=== PATIENT | female | born 1990 | race Caucasian/White ===

== ENCOUNTER → 2024-03-19 15:26 | Outpatient (CLI) | payer OTHER, SELFPAY ==
[2024-03-19 20:39] LABS: Urine N gonorrhoeae NOT DETECTED
[2024-03-19 20:44] LABS: Urine Chlamydia NOT DETECTED
== END ==
PROVIDERS: Visit Provider Student in an Organized Health Care Education/Training Program
DX: Z11.3 Encounter for screening for infections with a predominantly sexual mode of transmission (principal)
CPT/HCPCS: 87491; 87591

== ENCOUNTER → 2024-04-02 11:30 | Outpatient (CLI) | payer OTHER, SELFPAY ==
[2024-04-02 12:19] LABS: Add Manual Diff / Slide Review NO; Basophils Absolute Auto 0 /uL (0-100); Basophils Percent Auto 0.2 % (0-2); Eosinophils Absolute Auto 100 /uL (0-450); Eosinophils Percent Auto 0.6 % (2-4); Hematocrit 40.6 % (36-46); Hemoglobin 13.6 g/dL (12.0-16.0); Lymphocytes Absolute Auto 2300 /uL (1100-4500); Lymphocytes Percent Auto 26.2 % (25-40); Mean Corpuscular HGB Conc 33.4 % (30-36); Mean Corpuscular Hemoglobin 29.5 PG (26-34); Mean Corpuscular Volume 88.3 fL (80-100); Monocytes Absolute Auto 500 /uL (0-900); Monocytes Percent Auto 5.3 % (3-14); Neutrophils Absolute Auto 6000 /uL (1500-7000); Neutrophils Percent Auto 67.7 % (50-75); Platelet Count 226 X10^3/uL (150-400); Red Cell Distribution Width 13.4 % (11.6-14.8); White Blood Cell Count 8.8 X10^3/uL (4.5-11.0)
[2024-04-02 12:39] LABS: Natera Collection Specimen Collected
[2024-04-04 05:11] LABS: RPR Screen Non Reactive (Non Reactive)
[2024-04-04 08:16] LABS: Varicella IgG Antibody Reactive (Non Reactive)
[2024-04-04 16:46] LABS: Hepatitis B Surface Antigen NEGATIVE s/c (NEGATIVE)
[2024-04-04 17:03] LABS: HIV 1 & 2 Ab/Ag 4th Gen Combo NEGATIVE (NEGATIVE); Hep C Virus Ab w/Reflex Quant NEGATIVE s/c (NEGATIVE)
== END ==
PROVIDERS: Referring Provider Student in an Organized Health Care Education/Training Program; Visit Provider Student in an Organized Health Care Education/Training Program
DX: Z34.81 Encounter for supervision of other normal pregnancy, first trimester (principal)
CPT/HCPCS: 36415; 80055; 86787; 86803; 86850; 86900; 86901; 87389

== ENCOUNTER → 2024-06-11 11:07 | Outpatient (CLI) | payer OTHER, SELFPAY | PROVIDERS: Referring Provider Student in an Organized Health Care Education/Training Program; Visit Provider Student in an Organized Health Care Education/Training Program | DX: Z34.80 Encounter for supervision of other normal pregnancy, unspecified trimester (principal) | CPT/HCPCS: 36415; 86735; 86762; 86765 ==

== ENCOUNTER → 2024-06-12 11:59 | Outpatient (CLI) | payer OTHER, SELFPAY ==
--- NOTE | 2024-06-12 12:01 | DI.US.S_ITS ---
PROCEDURE: US OB >= 14 WEEKS FETUS INDICATIONS: 20 week anatomy scan OUTSIDE/PRIOR DATING DATA: Last menstrual period (LMP): 01/14/2024. LMP-based estimated date of delivery (MABLE): 10/20/2024. First dating scan (date and location): 03/19/2024. Estimated date of delivery (MABLE) from first dating scan: 10/23/2024. The calculations are made using the clinical MABLE of 10/20/2024. TECHNIQUE: Real-time scanning was performed of the fetus, with image documentation and biometric measurements. COMPARISON: None. FINDINGS: General: A single living intrauterine gestation is present. Presentation: Vertex. Placenta: Placental position is anterior , without previa. Amniotic fluid index: 14.8 cm, normal range is 5-24 cm. Single deepest vertical pocket is 5.9 cm. heart rate: 165 beats per minute. Maternal cervical canal: 3.3 cm long. Normal lower limit is 2.5 cm. biometrics: Biparietal diameter: 5.1 cm 21 weeks 4 days Head circumference: 19.8 cm 22 weeks 0 days Abdominal circumference: 16.8 cm 21 weeks 6 days Femur length: 3.9 cm 22 weeks 2 days Clinically estimated gestational age: 21 weeks 3 days Composite gestational age from present scan: 22 weeks 0 days Estimated weight and percentile: 470 g 96th percentile Anatomic survey: Neuro: Ventricles are non-dilated at less than 10 mm. Cisterna magna is normal at 3-11 mm. Cerebellum is normal in size and morphology. Nuchal skin fold: Normal at less than 6 mm between 14-21 weeks gestational age. Face: Nose and lips, facial profile are normal. Spine: No evidence for spina bifida. Heart: 4-chambered heart is present, with normal ventricular outflow tracts. Diaphragm: Diaphragm is intact. Stomach: Left-sided stomach is present. Kidneys: No hydronephrosis. Normal is less than 5 mm in 2nd trimester, less than 7 mm in 3rd trimester. Cord: 3-vessel cord has orthotopic insertion. Bladder: Normal in size. Extremities: All 4 extremities identified. IMPRESSION: Single live intrauterine with gestational age today of 22 weeks 0 days. Anatomy is within normal limits. We strive to produce accurate, complete, and clear reports of imaging services. To assist us in improving patient care, this report was composed using standard report templates and voice recognition software. Therefore, it may contain abnormal punctuation, insertions and/or omissions. Occasional wrong-word or sound-alike substitutions may occur. Though we review the report and make efforts to correct it, we do recommend that the report be read carefully in proper context to recognize any text inaccuracies. Dictated by: Carmen Garcia M.D. on 06/12/2024 at 22:05 Approved by: Carmen Garcia M.D. on 06/12/2024 at 22:07
== END ==
PROVIDERS: Referring Provider Student in an Organized Health Care Education/Training Program; Visit Provider Student in an Organized Health Care Education/Training Program
DX: Z36.0 Encounter for antenatal screening for chromosomal anomalies (principal); Z3A.22 22 weeks gestation of pregnancy
CPT/HCPCS: 76811

== ENCOUNTER → 2024-07-09 13:49 | Outpatient (CLI) | payer OTHER, SELFPAY ==
[2024-07-09 15:53] LABS: Hematocrit 39.1 % (36-46); Hemoglobin 13.1 g/dL (12.0-16.0)
[2024-07-09 16:43] LABS: GTT (PREG) 1 Hour PP 50gm Dose 122 mg/dL (76-139)
== END ==
PROVIDERS: Referring Provider Student in an Organized Health Care Education/Training Program; Visit Provider Student in an Organized Health Care Education/Training Program
DX: Z13.0 Encounter for screening for diseases of the blood and blood-forming organs and certain disorders involving the immune mechanism (principal); Z13.1 Encounter for screening for diabetes mellitus
CPT/HCPCS: 82950; 85014; 85018

== ENCOUNTER 2024-09-16 14:56 | Outpatient (CLI) | payer OTHER, SELFPAY ==
[2024-09-16 15:55] LABS: Alanine Aminotransferase 17 IU/L (<35); Albumin 3.3 g/dL (3.5-5.0); Albumin Globulin Ratio 1.1 (1.0-2.8); Alkaline Phosphatase 92 U/L (38-126); Aspartate Aminotransferase 29 IU/L (14-36); BUN Creatinine Ratio 6.5 (6-22); Bilirubin Total 0.5 mg/dL (0.2-1.3); Blood Urea Nitrogen 3 mg/dL (7-17); Calcium 9.2 mg/dL (8.4-10.2); Carbon Dioxide 20 mmol/L (22-32); Chloride 106 mmol/L (98-107); Estimated Glomerular Filt Rate > 60 mL/min (>60); Globulin 2.9 g/dL (1.7-4.1); Glucose 106 mg/dL (70-99); HEMOLYSIS < 15 (0-50); Potassium 3.5 mmol/L (3.4-5.1); Sodium 133 mmol/L (137-145); Total Protein 6.2 g/dL (6.3-8.2); Uric Acid 3.2 mg/dL (2.5-6.2)
[2024-09-16 16:02] LABS: Add Manual Diff / Slide Review NO; Basophils Absolute Auto 0 /uL (0-100); Basophils Percent Auto 0.3 % (0-2); Eosinophils Absolute Auto 100 /uL (0-450); Eosinophils Percent Auto 1.4 % (2-4); Hematocrit 38.9 % (36-46); Hemoglobin 13.1 g/dL (12.0-16.0); Lymphocytes Absolute Auto 2000 /uL (1100-4500); Lymphocytes Percent Auto 24.2 % (25-40); Mean Corpuscular HGB Conc 33.7 % (30-36); Mean Corpuscular Hemoglobin 31.7 PG (26-34); Mean Corpuscular Volume 94.2 fL (80-100); Monocytes Absolute Auto 600 /uL (0-900); Monocytes Percent Auto 7.5 % (3-14); Neutrophils Absolute Auto 5600 /uL (1500-7000); Neutrophils Percent Auto 66.6 % (50-75); Platelet Count 192 X10^3/uL (150-400); Red Blood Cell Count 4.13 X10^6/uL (4.0-5.2); Red Cell Distribution Width 14.3 % (11.6-14.8); White Blood Cell Count 8.4 X10^3/uL (4.5-11.0)
[2024-09-16 16:09] LABS: Creatinine Urine Random 122.03 mg/dL; Protein (Total) Urine Random 12 mg/dL (0-12); Protein Creatinine Ratio Urine 0.09 GRAM/24H
== END 2024-09-16 16:20 | disposition home or self-care (01) ==
LOC: OB 09-17 06:37
PROVIDERS: Referring Provider Student in an Organized Health Care Education/Training Program; Visit Provider Student in an Organized Health Care Education/Training Program
DX: Z34.83 Encounter for supervision of other normal pregnancy, third trimester (principal); Z3A.35 35 weeks gestation of pregnancy
CPT/HCPCS: 36415; 59025; 80053; 84550; 85025; G0378; G0379

== ENCOUNTER → 2024-09-27 14:24 | Outpatient (CLI) | payer OTHER, SELFPAY ==
[2024-09-28 12:03] LABS: Strep Grp B PCR POS for Grp B Strep
== END ==
LOC: LAB 14:25
PROVIDERS: Visit Provider Obstetrics & Gynecology
DX: Z34.93 Encounter for supervision of normal pregnancy, unspecified, third trimester (principal); Z3A.36 36 weeks gestation of pregnancy
CPT/HCPCS: 87653

== ENCOUNTER → 2024-10-08 15:23 | Outpatient (CLI) | payer OTHER, SELFPAY ==
--- NOTE | 2024-10-08 15:26 | DI.US.S_ITS ---
PROCEDURE: US OB LIMITED INDICATIONS: LGA OUTSIDE/PRIOR DATING DATA: Last menstrual period (LMP): 01/14/2024. LMP-based estimated date of delivery (MABLE): 10/20/2024. First dating scan (date and location): 03/19/2024. Estimated date of delivery (MABLE) from first dating scan: 10/23/2024. The calculations are made using the clinical MABLE of 10/20/2024. TECHNIQUE: Real-time scanning was performed of the fetus, with image documentation and biometric measurements. Endovaginal scanning: Not performed COMPARISON: [facility], OB >= 14 WEEKS FETUS, 06/12/2024, 12:19. FINDINGS: General: A single living intrauterine gestation is present. Presentation: Vertex. Placenta: Placental position is anterior, without previa. Amniotic fluid index: 12 cm, normal range is 5-24 cm. Single deepest vertical pocket is 6 cm. heart rate: 141 beats per minute. Maternal cervical canal: Not well seen. biometrics: Biparietal diameter: 9.6 cm, 39 weeks 0 days Head circumference: 34.2 cm, 39 weeks 3 days Abdominal circumference: 34.8 cm, 38 weeks 5 days Femur length: 7.7 cm, 39 weeks 2 days Clinically estimated gestational age: 38 weeks 2 days Composite gestational age from present scan: 39 weeks 1 day Estimated weight and percentile: 3650 g, 80th percentile IMPRESSION: 1. Rivera living intrauterine at 39 weeks 1 day based on today's ultrasound. This is concordant with the prior dating. Fetus is in the 80th percentile for weight. 2. Normal placenta and amniotic fluid. We strive to produce accurate, complete, and clear reports of imaging services. To assist us in improving patient care, this report was composed using standard report templates and voice recognition software. Therefore, it may contain abnormal punctuation, insertions and/or omissions. Occasional wrong-word or sound-alike substitutions may occur. Though we review the report and make efforts to correct it, we do recommend that the report be read carefully in proper context to recognize any text inaccuracies. Dictated by: Luis E Szymanski M.D. on 10/09/2024 at 16:07 Approved by: Luis E Szymanski M.D. on 10/09/2024 at 16:10
== END ==
LOC: US 15:25
PROVIDERS: Referring Provider Obstetrics & Gynecology; Visit Provider Obstetrics & Gynecology
DX: O36.63X0 Maternal care for excessive fetal growth, third trimester, not applicable or unspecified (principal); Z3A.39 39 weeks gestation of pregnancy
CPT/HCPCS: 76815

== ENCOUNTER 2024-10-19 19:18 | Inpatient (IN) | payer OTHER, SELFPAY ==
[2024-10-19 20:05] VITALS: BP 134/81
--- NOTE | 2024-10-19 20:08 | PM.OBHP.IH.1 ---
OB HPI Date/Time Date of admission: 10/19/24 Date Patient Seen: 10/19/24 Time Patient Seen: 20:47 History of Present Condition Chief complaint: Induction/labor MABLE Calculator Estimated Delivery Date Method Current WG Current Estimate 10/20/24 LMP (Certain) 39w 6d Other Estimates 10/23/24 Ultrasound #1 39w 3d : 2 Para: 1 Narrative: 34yo at 39+6wks admitted for elective IOL. care: good care Dating criteria OB: LMP confirmed by 1st trimester US Ultrasounds: normal mid trimester US Narrative: Ultrasound Ultrasound Details:: Dating US 03/19/24: cotto IUP with CRL 2.2cm (8+6wks), +FCA 179, normal appearing uterus, cervix, bilateral ovaries Anatomy US 06/12/24: normal anatomy, anterior placenta, EFW 96%ile Expected Delivery Route/Plan Specific Issues/Plans [x] cfDNA (low risk male) GBS positive Desires immediate sterilization--> planning vasectomy, patient may want sterilization as well; [ x] sterilization form (completed 08/06/24) Precip 1st delivery Hx abnormal pap ~ (may have prior to immigrating to ), requested all available records from previous OBGYN in [place] Assigned to Harley Indications Indication for induction OB: history of rapid labor Preadmission Labs Last OB Lab Results: Blood Type O Positive 04/02/24, 11:39 Antibody Screen Negative 04/02/24, 11:39 Hct, (36-46) 39.6 % Today, 20:15 Hgb, (12.0-16.0) 13.8 g/dL Today, 20:15 Hep Bs Antigen, (NEGATIVE) Negative s/c 04/02/24, 11:39 Hepatitis C Antibody, (NEGATIVE) Negative s/c 04/02/24, 11:39 Rubella Antibody, (>15) 144.0 IU/mL 06/11/24, 11:11 VZV IgG Antibody, (Non Reactive) Reactive 04/02/24, 11:39 Glucose 1 Hr 50 gm, (76-139) 122 mg/dL 07/09/24, 15:05 Group B Strep (PCR) Pos for grp b strep H 09/27/24, 14:40 Glucose Tolerance Testin hr (negative) -: Chlamydia screen: negative, Gonorrhea screen: negative and Urine: negative -: PAP smear: Normal Genetic Screens: Cell-free DNA: Normal External Labs -: Urine: negative Prior (ies) Past Pregnancies Del. Date GA/Weeks Labor Lgth Wt Sex Route Outcome Anesthesia Place Delv Breastfeed Preg Comp Name 03/28/22 39 4 7 lb 11 oz Female vaginal live - full term epidural [facility] 6 months Winter Delivery Date: 03/28/22 Last Updated by: Alta Oliva RN precipitous delivery Evaluation Evaluation Baseline heart rate: 150 Variability: Moderate (6-25) monitor accelerations: Present Monitor Decelerations: Absent Status: Category l Dilation (cm): 1 Effacement (%): 50 station: -3 Position of cervix: posterior Consistency: soft PFSH Medical History (Updated 10/08/24 @ 14:33 by Esha Souza DO) Headache Chicken pox Abnormal Pap smear of cervix (~2020) Frequent UTI (~2014) Migraine with aura Eczema Surgical History (Updated 04/21/24 @ 19:22 by Zoe Dye) Anesthesia [place] teeth extracted (~2019) Family History (Updated 04/21/24 @ 19:23 by Zoe Dye) Mother Diabetes mellitus Grandmother Diabetes mellitus Stroke Grandmother Diabetes mellitus Ovarian cancer Father Coagulopathy DVT (deep venous thrombosis) Grandfather Hypertension Hyperlipidemia Heart disease Social History marital status: number of children: 1 household members: spouse and children lives independently: Yes caregiver/support person: Yes housing: house pets and animals: Yes (dog) education level: college (bachelor's degree) occupational status: unemployed current occupational exposures/hazards: No special kaci needs: No travel history: recent ([place] only) seatbelt use: always water heater temp set < 120 deg: Yes working smoke detector in home: Yes fire extinguisher in home: No carbon monox detector in home: Yes firearms in home: No do you feel safe at home: Yes Smoking Status: Never smoker second hand exposure: No alcohol intake: former (rarely when not ) substance use type: does not use during the past year weight has: remained stable well-balanced diet: daily or most days daily servings fruits/ve or more times/day caffeine: No Type(s) of exercise: walking and bicycling (stationary bike) Meds Home Medications and Allergies Home Medications ?Medication ?Instructions ?Recorded ?Confirmed ?Type vitamin-ferrous sulfate 1 tab PO DAILY 03/14/24 10/19/24 History 27 mg iron-folic acid 0.8 mg tablet Allergies Allergy/AdvReac Type Severity Reaction Status Date / Time No Known Drug Allergies Allergy Unverified 10/19/24 20:07 Review of Systems Review of Systems ROS: Yes All systems reviewed with the patient and are negative except as otherwise documented OB Exam Vital signs Blood Pressure: 134/81 Pulse Rate: 89 HENMT Head: normal to inspection and normocephalic Eyes General: appearance normal, both eyes and all related structures Resp Effort & Inspection: normal respiratory effort and able to speak in complete sentences Extremities Lower extremity: Yes normal to inspection GI Inspection: normal to inspection Other: gravid, nontender, nondistended Objective Labs 10/19/24 20:15 Assessment and Plan Assessment and Plan Assessment and Plan narrative: 34yo at 39+6wks admitted for induction of labor. She still desires sterilization, and the surgical consent was reviewed and signed on admission. -CBC, T&S on admission -continuous EFM -epidural PRN -GBS positive, will treat with ampicillin -PPH risk low -VTE risk low, SCDs with epidural -anticipate L&D Counseling: Common procedures and interventions related to the management of were explained to the patient, including assistance at vaginal delivery with episiotomy, vacuum, or forceps, use of medications to stop premature labor or induce labor, and assessment including auscultation (listening to the heart), use of electronic monitoring (external and / or internal), and use of scalp electrode and/or intrauterine pressure catheter.? It was also explained that approximately 20-30% of mothers have a need for delivery during their labor course. It was explained to the patient that , labor and delivery are ordinarily normal physiological events and can be expected to provide a healthy outcome for mother and baby in the majority of cases. However, there are complications that may arise during , labor, and delivery, such as: hemorrhage requiring administration of blood and/or blood products, surgical intervention, possibly even hysterectomy for life-saving purposes; possibility of infection requiring antibiotics, prolonged hospital stay, and rarely surgical intervention; possibility of blood clots;? possibility of retained products of conception requiring surgical intervention;? possibility of serious tears or injury to the vagina, cervix, perineum, or rectum;? possibility of injury to abdominal structures if delivery is required;? and rarely maternal or may occur. Time-Based Coding :: [30min] spent with patient and on the chart (including review of chart, obtaining history, exam, reviewing outside data, placing orders, documenting exam and treatment plan, and counseling patient) on [10/19/24].
[2024-10-19 20:14] VITALS: BP 134/81; PULSE 89
[2024-10-19 20:34] LABS: Add Manual Diff / Slide Review NO; Hematocrit 39.6 % (36-46); Hemoglobin 13.8 g/dL (12.0-16.0); Lymphocytes Absolute Auto 2400 /uL (1100-4500); Mean Corpuscular HGB Conc 34.9 % (30-36); Mean Corpuscular Hemoglobin 32.4 PG (26-34); Mean Corpuscular Volume 92.8 fL (80-100); Platelet Count 184 X10^3/uL (150-400)
[2024-10-19] MEDS: AMPICILLIN 2,000 MG in SODIUM CHLORIDE 0.9% 100 ML 200 MG IV (20:58)
[2024-10-19] MEDS: LACTATED RINGERS 1,000 ML 100 ML IV (20:58)
[2024-10-20] VITALS (8 sets, daily range): BP systolic 80–101; BP diastolic 44–65; PULSE 17–66; RESP 16–95; TEMP 36.3; O2SAT 95–99
--- NOTE | 2024-10-20 | PATH_ITS ---
[facility] Accession Number: [id number] No. of containers..01 Tissue . 01 Material submitted: . fallopian tube - BILATERAL FALLOPIAN TUBES . 01 Diagnosis: BILATERAL FALLOPIAN TUBES: First described (longer) fallopian tube, complete cross-sections, with no significant abnormality. Second-described fallopian tube (shorter), complete cross-sections, negative for significant atypia. [facility] 10/29/2024 1150 Local . 01 Electronically signed: . Kerline Hedrick MD, Pathologist NPI- [id number] . 01 Gross description: . Received in formalin labeled with two identifiers and bilateral fallopian tubes, are two undesignated fallopian tubes. The first fallopian tube is 8.5 cm in length by 0.9 cm in diameter. The second fallopian tube is 4.5 cm in length by 0.5 cm in diameter. The serosa is brown and dusky. The cut surfaces are brown with a pinpoint lumen. [employer] sections are submitted as follows: A1: First fallopian tube. A2: Second fallopian tube. ([id number]) /[facility] 10/22/20242049 Local . 01 Pathologist provided ICD-10: Z30.2 . 01 CPT . 288112 Specimen Comment: A courtesy copy of this report has been sent to [facility] Pathology Performed at: [address] [id number] [place] Kiran Alan MD Phone: [phone]
[2024-10-20] MEDS: AMPICILLIN 1,000 MG in SODIUM CHLORIDE 0.9% 100 ML 200 MG IV ×3 (01:19→09:33)
[2024-10-20] MEDS: OXYTOCIN PREMIX 30 UNIT/500 ML PLAST..BAG IV (05:21)
[2024-10-20] MEDS: LACTATED RINGERS 500 ML 1000 ML IV (08:28)
[2024-10-20] MEDS: LACTATED RINGERS 1,000 ML 100 ML IV (09:35)
--- NOTE | 2024-10-20 09:42 | PM.AN.REGBLK ---
Regional Block Pre-procedure Procedure: Continuous Lumbar Epidural for L&D Attending OB provider: Esha Souza PMH/ROS narrative: , 40wk, elective IOL. Healthy, ROS neg with exception of GERd with this . PSH/Anesthesia history narrative: none Exam narrative: Mall I, good dentition Labs: Hct 39.6 % (36-46) 10/19/24 20:15 Plt Count 184 X10^3/uL (150-400) 10/19/24 20:15 Medications: Current Medications Generic Name Dose Route Start Last Admin Trade Name Freq PRN Reason Stop Dose Admin Acetaminophen 650 mg 10/20/24 09:38 Acetaminophen 325 Mg Tablet PO Q4HR PRN headache/mild pain Calcium Carbonate 1,000 mg 10/19/24 20:05 Calcium Carbonate 500 Mg Tab PO Q2HR PRN Dyspepsia Carboprost Tromethamine 250 mcg 10/19/24 20:05 Carboprost 250 Mcg/Ml Ampul IM Q90M PRN Bleeding Diphenhydramine HCl 25 mg 10/20/24 09:40 Diphenhydramine 50 Mg/Ml Vial IV Q10M PRN Pruritis Ephedrine Sulfate 10 mg 10/20/24 09:40 Ephedrine 50 Mg/Ml Vial IV Q5M PRN Blood pressure decrease more than 20% of baseline. Hydroxyzine HCl 25 mg 10/20/24 09:38 Hydroxyzine 50 Mg/Ml Inj IM Q4HR PRN spasm or agitation Oxytocin/Lactated Ringer's 30 unit in 500 mls @ 200 mls/hr 10/19/24 20:05 Oxytocin Premix IV CONT PRN Bleeding Protocol Tranexamic Acid 1,000 mg/ 100 mls @ 600 mls/hr 10/19/24 20:05 Sodium Chloride IV NOW PRN Bleeding Ampicillin Sodium 1,000 mg/ 100 mls @ 200 mls/hr 10/20/24 00:00 10/20/24 09:33 Sodium Chloride IV 200 mls/hr Q4H DAVID Administration Oxytocin/Lactated Ringer's 30 unit in 500 mls @ 2 mls/hr 10/20/24 04:59 10/20/24 05:21 Oxytocin Premix IV 2 milliunit/min TITRATE DAVID 2 mls/hr Protocol Administration 2 MILLIUNIT/MIN Lactated Ringer's 1,000 mls @ 100 mls/hr 10/20/24 09:45 Lactated Ringers IV CONT DAVID FENT 2MCG/ML BUPIV 0.125% EPI 200 mcg in 100 mls @ 12 mls/hr 10/20/24 09:45 Fentanyl/Bupiv/Ns 2mcg/Ml - 0.125% EPIDURAL CONT DAVID Lidocaine HCl 20 ml 10/19/24 20:05 Lidocaine 1% 20 Ml INJ INTRA-OP PRN Post Delivery Methylergonovine Maleate 0.2 mg 10/19/24 20:05 Methylergonovine 0.2 Mg Tablet PO Q6HR PRN Heavy Bleeding Methylergonovine Maleate 0.2 mg 10/19/24 20:05 Methylergonovine 0.2 Mg/Ml Vial IM NOW PRN Bleeding Misoprostol 800 mcg 10/19/24 20:05 Misoprostol 200 Mcg Tablet FL NOW PRN Bleeding Misoprostol 400 mcg 10/19/24 20:05 Misoprostol 200 Mcg Tablet SL NOW PRN Bleeding Nalbuphine HCl 2.5 mg 10/20/24 09:40 Nalbuphine 20 Mg/Ml Ampul IV Q10M PRN Pruritis Naloxone HCl 0.2 mg 10/19/24 20:05 Naloxone 0.4 Mg/Ml Vial IV Q2MIN PRN Opiate Reversal Naloxone HCl 0.4 mg 10/20/24 09:38 Naloxone 0.4 Mg/Ml Vial IV Q2MIN PRN Opiate Reversal Ondansetron HCl 4 mg 10/19/24 20:05 Ondansetron 4 Mg/2 Ml Inj IV Q4HR PRN Nausea And Vomiting Ondansetron HCl 4 mg 10/20/24 09:38 Ondansetron 4 Mg/2 Ml Inj IV Q6HR PRN Nausea And Vomiting Oxytocin 10 unit 10/19/24 20:05 Oxytocin 10 Unit/Ml Vial IM NOW PRN Bleeding Allergies: Allergies Allergy/AdvReac Type Severity Reaction Status Date / Time No Known Drug Allergies Allergy Unverified 10/19/24 20:07 Procedure Insertion date: 10/20/24 Insertion time: 09:01 Prep/Local: 1% lidocaine (chloroprep skin prep, dry x 3 min) Interspace: L4-5 Patient position: sitting Needle: 17 gauge Tuohy Loss of resistance with: saline KIET at (cm): 7 Catheter placed at SKIN (cm): 14 Catheter in SPACE (cm): 7 Sensory level: T10 Insertion: No CSF, No Blood, No Paresthesia with insertion, No Paresthesia with injection and No Test dose reaction Initial Medications TEST DOSE time: : BOLUS DOSE time: : BOLUS DOSE (mL): 6 BOLUS DOSE med: other (pump solution) Infusion Initial rate (mL/hr): 12 Post-procedure Anesthesia date START: 10/20/24 Anesthesia time START: : Anesthesia date END: 10/20/24 Anesthesia time END: 11:17 Post-procedure Anesthesia Assessment: Yes CV function: HR/BP stable, Yes Resp function: RR/sat/airway adequate, Yes Post-op hydration adequate, Yes Pain control adequate, Yes Nausea & vomiting absent, Yes Temperature > 36 C, Yes Mental status appropriate and Yes Anesthesia complications
--- NOTE | 2024-10-20 10:20 | PM.OBPNLAB ---
Date/Time Date Patient Seen: 10/20/24 Time Patient Seen: 10:21 Pain Control Pain control: epidural Pelvic Exam Dilation (cm): 8 Effacement (%): 90 station: -1 Amniotic membrane status: Ruptured (AROM performed, clear fluid) Contractions Pitocin rate (mU/min): 6 Contraction pattern: Regular Status status: Category l Heart Rate Baseline: 140 Monitor Accelerations: Present Monitor Decelerations: Absent Monitor Variability: Moderate Assessment and Plan Assessment: active labor Plan: continuous present management Comments: AROM performed, productive of clear fluid. -anticipate
[2024-10-20] MEDS: METHYLERGONOVINE 0.2 MG/ML VIAL IM (11:09)
--- NOTE | 2024-10-20 11:17 | P.PCNOB_ITS ---
Labor & Delivery Delivery date: 10/20/24 Delivery Time: 10:55 Cervical ripening method: per misoprostal protocol Induction method: per pitocin protocol Delivery augmentation: rupture of membranes Delivery monitor: external FHT and external uterine Route of delivery: L&D Laceration Description: None Estimated blood loss (mL): 400 Anesthesia Type: Epidural Complications: none Narrative: The patient progressed to C/C/+2 with pitocin augmentation and epidural anesthesia. After approximately 5 sets of maternal pushing efforts, the delivered in OA position and restituted ROT. The anterior shoulder delivered with gentle downward pressure. The posterior shoulder and rest of body delivered with ease. The cord was doubly clamped and cut after a 60sec delay with the infant placed on maternal abdomen. The placenta delivered spontaneously and was intact with a 3-vessel cord. The fundus was noted to be firm with bimanual massage, pitocin, and methergine x1. Inspection of the cervix, vagina, and perineum was notable for no lacerations. All sponges were removed from the vagina. The patient tolerated delivery well and remained in the labor room with the at the bedside. [place] Baby 1: gender: Male Presentation: vertex Placenta delivery description: Spontaneous Cord Vessel Description: 3 Vessels score (1 min): 8 score (5 min): 9 weight: 9 lb 10.959 oz Plan for aftercare: Routine care
[2024-10-20] MEDS: LACTATED RINGERS 1,000 ML 42 ML IV ×2 (15:30→17:04)
--- NOTE | 2024-10-20 15:33 | PM.PREOP ---
Pre-operative Note Interval Note History & Physical reviewed/Exam performed by Physician: Yes Changes to H&P: No H&P completed within 30 days and has changed as indicated here:: Pt previously counseled and consented for bilateral salpingectomy, and desires to proceed with procedure.
[2024-10-20] MEDS: CEFAZOLIN 2 GM/100 ML PREMIX 100 ML IV (15:59)
--- NOTE | 2024-10-20 16:05 | SUR.OPER ---
Supine on padded OR bed, head on pillow, arms secured on padded arm boards at <90 degrees abduction, legs uncrossed, safety belt at thigh, tape over blanket over lower legs.
[2024-10-20] MEDS: BUPIVACAINE LIPOSOME 266 MG/20 ML VIAL INJ (16:18)
--- NOTE | 2024-10-20 16:57 | PM.OP.1 ---
Operative Date/Time/Diagnoses Date of procedure: 10/20/24 Time of procedure: 16:00 Pre-op diagnosis: Undesired future fertility Post-op diagnosis: same Procedure & Clinicians Procedure: bilateral salpingectomy Same procedure(s) as scheduled: Yes Indications: 34yo [id number] previously counseled and consented for bilateral salpingectomy. Surgeon: Esha Souza Click Yes if Unassisted: Yes Anesthesia Type: Epidural Operative Notes Findings: Normal appearing fallopian tubes Specimen(s): other (bilateral fallopian tubes) Applied: none Estimated Blood Loss (mL): 5 Blood products transfused: none Procedure in detail: The risks, benefits, indications, and alternatives of the procedure had previously been reviewed with the patient and informed consent was obtained. The patient was taken to the operating room where a spinal was obtained without difficulty. Patient was then prepped and draped in the usual sterile fashion and a lawler catheter was placed. An approximately 4cm transverse, infraumbilical skin incision was then made with the scalpel. The incision was carried down through the underlying layer of fascia. The fascia was incised in the midline and extended laterally using the Nair scissors. The fascial edges were tagged with 0-Vicryl. The peritoneum was then identified, tented up using hemostats, and entered sharply using Metzenbaum scissors. The peritoneum was noted to be free of any adhesions and the incision was then extended with the bovie. The patient?s left fallopian tube was palpated, grasped with a Aylssa clamp, and brought to the level of the abdominal incision. The tube was then followed out to its fimbriated end for confirmation. In a stepwise fashion, the left fallopian tube was removed from the fimbriated end to 2cm from the cornual end with ultimate excision of the fallopian tube using the Ligasure. The same procedure was performed on the patient?s right side to excise the right fallopian tube. Each pedicle was inspected and noted to be hemostatic prior to being returned to the abdomen. The peritoneum and fascia were then closed in a single running layer using 0 vicryl. 20cc of Exparel were injected into the subcutaneous and fascial tissues. The skin was closed using 4-0 Monocryl in a subcuticular fashion and covered with Dermabond. At the completion of the case the sponge and needle counts were correct x2. The patient tolerated the procedure well and was taken to recovery in stable condition. Complications: none Post-operative Condition: stable Disposition: PACU Plan for aftercare: Routine care.
[2024-10-20] MEDS: ONDANSETRON 4 MG/2 ML INJ IV (17:25)
[2024-10-20] MEDS: OXYCODONE IR 5 MG TABLET PO ×2 (17:25→22:11)
[2024-10-20] MEDS: KETOROLAC 30 MG/ML VIAL IV (18:05)
[2024-10-21] MEDS: IBUPROFEN 600 MG TABLET PO ×3 (00:04→13:04)
--- NOTE | 2024-10-21 08:52 | PM.OBDS.1 ---
Discharge Providers Provider Date of admission: 10/20/24 14:08 Discharge Date: 10/21/24 Primary care physician: Kristen BARTHOLOMEW Provider Consults: 10/19/24 20:05 Consult to Anesthesiology Urgent Comment: Consulting Provider: Anesthesiologist Reason for consultation: Epidural 10/20/24 14:08 Consult to Fingernail Technician Routine Comment: Discharge provider: Esha Souza DO Summary Hospital Course Date Patient Seen: 10/21/24 Time Patient Seen: 08:53 Diagnoses: Term gestation at 40+0wks Undesired future fertility Group B strep carrier History of precipitous labor Hospital Course: 34yo [id number] admitted at 39+6wks for induction of labor. She progressed to an uncomplicated spontaneous vaginal delivery, productive of a viable male infant. Her course was unremarkable. On day #0, she underwent a bilateral salpingectomy under epidural anesthesia, which was also uncomplicated. By day #1, she was ambulating, tolerating regular diet, voiding spontaneously with minimal lochia. Her pain was well controlled with oral medications, thus she was discharged to home on day #1. Peripartum Data Infant Delivery Method: Natural Vaginal Laceration Description: None Procedures: External monitoring Induction of labor Epidural anesthesia Spontaneous vaginal delivery bilateral salpingectomy complications: none [place] 1: Gender: Male Disposition of : home Discharge Diagnosis (1) Normal vaginal delivery: Status: Acute (2) Single live : Status: Acute (3) Sterilization procedure performed: Status: Acute (4) Group B streptococcal carriage complicating : Status: Acute (5) History of precipitous labor and deliveries, antepartum: Status: Acute (6) 40 weeks gestation of : Status: Acute Status at Discharge Cognitive/behavioral status at discharge: oriented Functional status at discharge: independent ambulation Overall status at discharge: patient is progressing back to baseline Time Spent with Patient Time attestation: Total time spent providing and/or coordinating discharge services: Time spent: Less than 30 minutes Objective Labs 10/19/24 20:15 Exam Vital Signs (past 8 hours): Oxygen Delivery Method Room Air vitals reviewed in OBIX, within normal parameters Const General: cooperative, healthy appearing, comfortable and No acute distress Resp Effort & Inspection: normal respiratory effort and able to speak in complete sentences GI Inspection: normal to inspection Other: fundus firm and nontender at U-2 Skin General: no rashes or lesions noted Other: infraumbilical incision clean/dry/intact with dermabond in place Neuro General: patient alert and patient awake Extrem General: normal to inspection, no pedal edema and no calf tenderness Psych Mood: congruent mood Affect: normal affect Discharge Plan Discharge Plan Patient Disposition: Home Provider Discharge Comment: Take ibuprofen 600mg every 6hrs and acetaminophen 650mg every 6hrs as needed for pain. Use oxycodone 5mg every 4hrs as needed for severe pain. Avoid lifting greater than 20lbs for at least 4 weeks. Avoid placing anything in the vagina for at least 4 weeks. Discharge orders & Medications Prescriptions: New oxycodone 5 mg Tablet 5 mg PO Q4HR PRN (Reason: Pain, Moderate (4-6)) Qty: 10 0RF Continued vit-ferrous sulfat-FA 27 mg iron- 0.8 mg tablet 1 tab PO DAILY Follow up/Referrals: Esha Souza DO [Physician, [employer]] Diet/Activity/Treatments Diet: Diet as Tolerated Activity: Ambulate as tolerated. Skin/Wound/Dressing Care Skin care: You may shower normally. Report to your healthcare provider any signs of infection, such as:: chills, fever, increased pain, unusual drainage and unusual redness Dressing: The skin glue on your incision will peel off after 1 week. Visit Report/Discharge Packet Instructions: DI for Heart Failure, DI for Tubal Ligation, DI for Labor and Delivery, Vaginal , DI for Prescription Opioid Use Stand Alone Forms: Patient Portal/API, Stroke Signs & Symptoms Discharge Data Primary Care Provider: Kristen Floyd
[2024-10-21] MEDS: PRENATAL VIT,CALC/IRON/FOLIC 1 TABLET 1 TAB PO (09:45)
[2024-10-21] MEDS: ACETAMINOPHEN 325 MG TABLET 650 MG PO (09:45)
[2024-10-21] MEDS: DOCUSATE 100 MG CAPSULE PO (09:45)
== END 2024-10-21 13:51 | disposition home or self-care (01) | DRG 798 ==
PROVIDERS: Admitting Provider Student in an Organized Health Care Education/Training Program; Referring Provider Student in an Organized Health Care Education/Training Program; Visit Provider Student in an Organized Health Care Education/Training Program
PROC: 10E0XZZ Delivery of Products of Conception, External Approach (ICD-10-PCS; CPT 58605; principal; 2024-10-20 16:00)
DX: O99.824 Streptococcus B carrier state complicating childbirth (principal); Z37.0 Single live birth; Z30.2 Encounter for sterilization; Z3A.39 39 weeks gestation of pregnancy
CPT/HCPCS: 36415; 59050; 59200; 85025; 86850; 86900; 86901; G0378; G0379; J0290; J0666; J0690; J1885; J2210; J2405; J2590

== ENCOUNTER 2024-11-27 03:58 | Emergency (ER) | payer OTHER, SELFPAY ==
[2024-11-27 04:06] VITALS: BP 142/83; PULSE 56; RESP 16; TEMP 37; O2SAT 100; BMI 25.9
--- NOTE | 2024-11-27 04:12 | ED.ABDPAIN ---
HPI - Abdominal Pain General Chief Complaint: Urogenital-Female Stated Complaint: Abdominal Pain, Urinary Symptoms Time Seen by Provider: 11/27/24 04:06 Source: patient Mode of arrival: Ambulatory History of Present Illness HPI narrative: 34-year-old female with history of urine infections, not currently on antibiotics, none recent, complains of low central abdominal discomfort with painful urination typical of previous UTI symptoms. Denies nausea or vomiting. Denies fevers or chills. Related Data Home Medications ?Medication ?Instructions ?Recorded ?Confirmed vitamin-ferrous sulfate 1 tab PO DAILY 03/14/24 10/19/24 27 mg iron-folic acid 0.8 mg tablet Previous Rx's ?Medication ?Instructions ?Recorded oxycodone 5 mg tablet 5 mg PO Q4HR PRN Pain, Moderate 10/21/24 (4-6) #10 tabs cephalexin 500 mg capsule 500 mg PO BID #6 caps 11/27/24 Allergies Allergy/AdvReac Type Severity Reaction Status Date / Time No Known Drug Allergies Allergy Unverified 11/27/24 04:06 Patient History Medical History (Updated 11/27/24 @ 05:03 by Derek White MD) Headache Chicken pox Abnormal Pap smear of cervix (~2020) Frequent UTI (~2014) Migraine with aura Eczema Surgical History (Updated 04/21/24 @ 19:22 by Zoe Dye) Anesthesia [place] teeth extracted (~2019) Family History (Updated 04/21/24 @ 19:23 by Zoe Dye) Mother Diabetes mellitus Grandmother Diabetes mellitus Stroke Grandmother Diabetes mellitus Ovarian cancer Father Coagulopathy DVT (deep venous thrombosis) Grandfather Hypertension Hyperlipidemia Heart disease Social History marital status: number of children: 1 household members: spouse and children lives independently: Yes caregiver/support person: Yes housing: house pets and animals: Yes (dog) education level: college (bachelor's degree) occupational status: unemployed current occupational exposures/hazards: No special kaci needs: No travel history: recent ([place] only) seatbelt use: always water heater temp set < 120 deg: Yes working smoke detector in home: Yes fire extinguisher in home: No carbon monox detector in home: Yes firearms in home: No do you feel safe at home: Yes Smoking Status: Never smoker second hand exposure: No alcohol intake: former (rarely when not ) substance use type: does not use during the past year weight has: remained stable well-balanced diet: daily or most days daily servings fruits/ve or more times/day caffeine: No Type(s) of exercise: walking and bicycling (stationary bike) Smoking Status: Never smoker Exam Narrative Exam Narrative: GENERAL: Well-developed patient, in mild distress. HEAD: Atraumatic. Normocephalic. EYES: Pupils equal round and reactive. Extraocular motions intact. No scleral icterus. No injection or drainage. ENT: Nose without bleeding, purulent drainage. Throat without erythema, tonsillar hypertrophy or exudate. Airway patent. NECK: Trachea midline. Non tender CARDIOVASCULAR: Regular rate and rhythm without murmurs, gallops, or rubs. RESPIRATORY: Clear to auscultation. Breath sounds equal bilaterally. No wheezes, rales, or rhonchi. GASTROINTESTINAL: Abdomen soft, non-tender, nondistended. EXTREMITIES: No edema or joint tenderness. BACK: Nontender without deformity or crepitance. No flank tenderness. NEURO: AOx3. Motor functions grossly nonfocal. SKIN: No rash or erythema of visible areas Initial Vital Signs Initial Vital Signs: Vital Signs Temperature 98.6 F 11/27/24 04:06 Pulse Rate 56 L 11/27/24 04:06 Respiratory Rate 16 11/27/24 04:06 Blood Pressure 142/83 H 11/27/24 04:06 Pulse Oximetry 100 11/27/24 04:06 Oxygen Delivery Method Room Air 11/27/24 04:06 Course Orders Ordered: ED Orders 11/27/24 04:07 Complete Blood Count AUTO DIFF Stat Comprehensive Metabolic Panel Stat HCG Quantitative /Beta subunit Stat Lipase Stat 11/27/24 04:15 Urine Culture Stat Urine Microscopic Stat Discontinued Medications Cefazolin Sodium (Cephalexin 250 Mg Cap Prepack) 1 bottle MISC DIRECTED ONE Stop: 11/27/24 04:42 Last Admin: 11/27/24 04:45 Dose: 500 mg Vital Signs Vital signs: Vital Signs - 8 hr 11/27/24 04:06 11/27/24 04:41 11/27/24 05:00 Temperature 98.6 F Pulse Rate 56 L 49 L 48 L Respiratory Rate 16 15 28 H Blood Pressure 142/83 H Pulse Oximetry 100 97 98 Oxygen Delivery Method Room Air 11/27/24 05:01 11/27/24 05:01 11/27/24 05:21 Temperature 97.8 F Pulse Rate 48 L Respiratory Rate 27 H Blood Pressure 117/70 Pulse Oximetry 98 Oxygen Delivery Method Room Air MDM - Abdominal Pain Lab Data Attestation: I reviewed the patient's lab results. Lab results narrative: White blood cell count 5500, hemoglobin 15.3, platelets adequate. Glucose 87. Normal renal function. Normal electrolytes and serum CO2. Liver functions and lipase negative. HCG negative. Urinalysis shows some inflammatory cells, urine culture requested. 11/27/24 04:37 11/27/24 04:37 Labs: Lab Results 11/27/24 11/27/24 Range/Units 04:15 04:37 WBC 5.5 (4.5-11.0) X10^3/uL RBC 4.86 (4.0-5.2) X10^6/uL Hgb 15.3 (12.0-16.0) g/dL Hct 44.9 (36-46) % MCV 92.4 (80-100) fL MCH 31.5 (26-34) PG MCHC 34.0 (30-36) % RDW 12.8 (11.6-14.8) % Plt Count 160 (150-400) X10^3/uL Neut % (Auto) 40.2 L (50-75) % Lymph % (Auto) 50.2 H (25-40) % [place] % (Auto) 6.2 (3-14) % Eos % (Auto) 2.7 (2-4) % Baso % (Auto) 0.7 (0-2) % Neut # (Auto) 2200 (7735-7935) /uL Lymph # (Auto) 2700 (6093-9440) /uL [place] # (Auto) 300 (0-900) /uL Eos # (Auto) 200 (0-450) /uL Baso # (Auto) 0 (0-100) /uL Sodium 139 (137-145) mmol/L Potassium 3.7 (3.4-5.1) mmol/L Chloride 103 (98-107) mmol/L Carbon Dioxide 27 (22-32) mmol/L BUN 7 (7-17) mg/dL Creatinine 0.73 (0.52-1.04) mg/dL Estimated GFR > 60 (>60) mL/min BUN/Creatinine Ratio 9.6 (6-22) Glucose 87 (70-99) mg/dL Calcium 9.3 (8.4-10.2) mg/dL Total Bilirubin 1.3 (0.2-1.3) mg/dL AST 29 (14-36) IU/L ALT 19 (<35) IU/L Alkaline Phosphatase 86 (38-126) U/L Total Protein 7.5 (6.3-8.2) g/dL Albumin 4.6 (3.5-5.0) g/dL Globulin 2.9 (1.7-4.1) g/dL Albumin/Globulin Ratio 1.6 (1.0-2.8) Lipase 117 (23-300) U/L HCG, Quant < 2.39 mIU/mL Urine RBC None seen (0-5/HPF) Urine WBC 5-10/hpf H (0-5/HPF) Ur Squamous Epith Cells 0-1 /hpf (0-5/HPF) Urine Bacteria Occasional (0-1) (None) Ur Culture Indicated? Cult not indicated Vol Urine Centrifuged 10ml (spun) Point of care testing: Urine Dip Bedside Urine Glucose Negative Bedside Urine Bilirubin - Negative Bedside Urine Ketone - Negative Urine Specific Ryan 1.000 Bedside Urine Occult Blood +++ Bedside Urine pH 6.5 Bedside Urine Protein - Negative Bedside Urine Urobilinogen - Negative Bedside Urine Nitrite - Negative Bedside Urine Leukocytes +++ 500 Esterase MDM Narrative Medical decision making narrative: 34-year-old female with suprapubic central low abdominal discomfort, history of UTI, afebrile, sirs screen negative, no significant tenderness on examination, nondistended. She feels symptoms are typical of her urinary infection symptoms, which she stated often showed fairly unremarkable urinalysis but was culture positive. Urinalysis does shows some inflammatory cells, not obviously infected otherwise, blood given history we will request urine culture. We will start antibiotics, cephalexin home pack given, can take 250 mg capsules, 2 capsules now, then 2 capsules twice daily, 5 day course dispensed. Prescription sent for 500 mg b.i.d. for an additional 2 days. Encouraged to drink oral fluids. Recheck symptoms advised with the regular doctor in the next couple of days to reach [facility] symptoms and response to therapy, and review urine culture results. Return precautions discussed. Discharged home. Discharge Plan Departure Patient Disposition: Home Clinical Impression: Dysuria, History of urinary tract infection Instructions: DI for Urinary Tract Infection (UTI) Activity Restrictions/Additional Instructions: Lower central abdominal pain, painful urination, history of urinary tract infections. No fever on triage. Unremarkable serum blood test results today. Urinalysis with some inflammatory changes, urine culture requested. First dose oral antibiotic cephalexin provided from the emergency department, 2 tablets by mouth advised to take twice daily, for 7 day course. Recheck symptoms with your regular provider in the next couple of days, she review results of your urine culture results as well. Take Tylenol as needed for pain control. Return to this/nearest emergency department for any change worsening symptoms or any concerns prior. Prescriptions: New cephalexin 500 mg capsule 500 mg PO BID Qty: 6 0RF No Action vit-ferrous sulfat-FA 27 mg iron- 0.8 mg tablet 1 tab PO DAILY oxycodone 5 mg Tablet 5 mg PO Q4HR PRN (Reason: Pain, Moderate (4-6)) Qty: 10 0RF Referrals: ProviderKristen [Primary Care Provider, Family Practice] Stand Alone Forms: Patient Portal/API
[2024-11-27 04:40] LABS: Culture Indicated Urine Cult Not Indicated
[2024-11-27 04:41] VITALS: PULSE 49; RESP 15; O2SAT 97
[2024-11-27 04:53] LABS: Add Manual Diff / Slide Review NO; Hematocrit 44.9 % (36-46); Hemoglobin 15.3 g/dL (12.0-16.0); Lymphocytes Absolute Auto 2700 /uL (1100-4500); Mean Corpuscular HGB Conc 34.0 % (30-36); Mean Corpuscular Hemoglobin 31.5 PG (26-34); Mean Corpuscular Volume 92.4 fL (80-100); Platelet Count 160 X10^3/uL (150-400)
[2024-11-27 04:54] LABS: Alanine Aminotransferase 19 IU/L (<35); Albumin 4.6 g/dL (3.5-5.0); Albumin Globulin Ratio 1.6 (1.0-2.8); Alkaline Phosphatase 86 U/L (38-126); Blood Urea Nitrogen 7 mg/dL (7-17); Calcium 9.3 mg/dL (8.4-10.2); Carbon Dioxide 27 mmol/L (22-32); Chloride 103 mmol/L (98-107); Estimated Glomerular Filt Rate > 60 mL/min (>60); Globulin 2.9 g/dL (1.7-4.1); Glucose 87 mg/dL (70-99); HEMOLYSIS < 15 (0-50); Lipase 117 U/L (23-300); Potassium 3.7 mmol/L (3.4-5.1); Sodium 139 mmol/L (137-145); Total Protein 7.5 g/dL (6.3-8.2)
[2024-11-27 05:00] VITALS: PULSE 48; RESP 28; O2SAT 98
[2024-11-27 05:01] VITALS: BP 117/70; PULSE 48; RESP 27; O2SAT 98
[2024-11-27 05:21] VITALS: TEMP 36.6
[2024-11-27 05:48] LABS: HCG Quantitative /Beta subunit < 2.39 mIU/mL
== END 2024-11-27 05:23 | disposition home or self-care (01) ==
PROVIDERS: Emergency Provider Emergency Medicine
DX: R10.30 Lower abdominal pain, unspecified (principal); R30.0 Dysuria; Z87.440 Personal history of urinary (tract) infections
CPT/HCPCS: 36415; 80053; 81003; 81015; 83690; 84702; 85025; 87077; 87086; 87147; 87186; 99283